=== PATIENT | female | born 1990 | race African-American/Black ===

== ENCOUNTER 2017-12-18 17:19 | Observation (INO) | payer BC ==
[~2017-12-18] VITALS: Ht 167.6 cm; Wt 68.9 kg
[2017-12-18] MEDS ORDERED: PNV1TABL76 PO (18:09)
== END 2017-12-18 20:10 | disposition home or self-care (01) ==
LOC: L&D 17:19
PROVIDERS: ADMIT Obstetrics & Gynecology; ATTEND Obstetrics & Gynecology
DX: O26.892 Other specified pregnancy related conditions, second trimester (principal); R10.9 Unspecified abdominal pain; Z3A.21 21 weeks gestation of pregnancy
CPT/HCPCS: 76805; G0378; 99281

== ENCOUNTER 2018-06-29 11:16 | Inpatient (IN) | payer BC ==
[~2018-06-29] VITALS: Ht 167.6 cm; Wt 71.2 kg
[~2018-06-29 11:16] MED LIST: PNV1TABL76 PO
[2018-06-29] MEDS ORDERED: ACETAMINOPHEN 325MG TABLET PO ONE ×2 (11:45→13:30)
[2018-06-29 12:16] LABS: COLOR URINE YELLOW (YELLOW); KETONES URINE NEGATIVE (NEGATIVE); LEUKOCYTE ESTERASE URINE TRACE (NEGATIVE); NITRITE URINE NEGATIVE (NEGATIVE); OCCULT BLOOD URINE 1+ (NEGATIVE); PROTEIN URINE NEGATIVE (NEGATIVE); SPECIFIC GRAVITY URINE 1.022 (1.005-1.030); UROBILINOGEN URINE 0.2 E.U./dL (0.2-1.0)
[2018-06-29 12:18] LABS: CLARITY URINE HAZY (CLEAR)
[2018-06-29 12:22] LABS: CHLORIDE 107 mEq/L (98-107)
[2018-06-29 12:23] LABS: HEMATOCRIT. 41.8 % (36.0-48.0); HEMOGLOBIN. 13.9 g/dL (12.0-16.0); MEAN CORPUSCULAR VOLUME 90.1 fL (81.0-99.0); MEAN PLATELET VOLUME 8.9 fl (7.4-10.4); PLATELET 309 x1000/uL (130-400); RED BLOOD CELL COUNT 4.64 mill/uL (4.2-5.4); RED CELL DISTRIBUTION WIDTH 15.3 % (11.6-14.6)
[2018-06-29 12:28] LABS: HCG SCREEN NEGATIVE
[2018-06-29 13:01] LABS: PLATELET ESTIMATE NORMAL
[2018-06-29] MEDS ORDERED: CEFTRIAXONE 2 G PREMIX 50 ML IV ONE (13:45)
[2018-06-29] MEDS ORDERED: LORAZEPAM 2MG/ML CPJ ONE (14:00)
[2018-06-29] MEDS ORDERED: LORAZEPAM 2MG/ML CPJ IV NR (14:45)
[2018-06-29] MEDS ORDERED: CLONIDINE 0.1MG TABLET PO PRN (14:45)
[2018-06-29] MEDS ORDERED: ONDANSETRON HCL 4MG/2ML INJ IV PRN (14:45)
[2018-06-29] MEDS ORDERED: LORAZEPAM 2MG/ML CPJ IV PRN (14:45)
[2018-06-29] MEDS: SODIUM CHLORIDE 0.45% 1,000 ML IV SCH (17:19)
[2018-06-29 17:21] VITALS: BP 94/58
[2018-06-29 20:00] VITALS: BP 101/45
[2018-06-29] MEDS ORDERED: LEVOFLOXACIN 500MG PREMIX 100 ML IV SCH (20:00)
[2018-06-29] MEDS: ACETAMINOPHEN 325MG TABLET PO PRN (20:38)
[2018-06-30] VITALS: BP 93/51
[2018-06-30 04:00] VITALS: BP 96/58
[2018-06-30] MEDS: SODIUM CHLORIDE 0.45% 1,000 ML IV SCH (06:01)
[2018-06-30 06:57] LABS: HEMATOCRIT. 39.5 % (36.0-48.0); HEMOGLOBIN. 13.1 g/dL (12.0-16.0); MEAN CORPUSCULAR HEMOGLOBIN 29.8 pg (28.0-32.0); MEAN CORPUSCULAR VOLUME 89.9 fL (81.0-99.0); MEAN PLATELET VOLUME 9.4 fl (7.4-10.4); PLATELET 280 x1000/uL (130-400); RED BLOOD CELL COUNT 4.39 mill/uL (4.2-5.4); RED CELL DISTRIBUTION WIDTH 15.5 % (11.6-14.6)
[2018-06-30 07:25] LABS: CHLORIDE 110 mEq/L (98-107)
[2018-06-30 07:51] VITALS: BP 98/53
[2018-06-30] MEDS: ACETAMINOPHEN 325MG TABLET PO PRN (08:03)
[2018-06-30 08:35] LABS: *BARBITURATES SCREEN URINE NEGATIVE (NEGATIVE)
[2018-06-30 08:36] LABS: *AMPHETAMINES SCREEN URINE NEGATIVE (NEGATIVE); *BENZODIAZEPINES SCREEN URINE NEGATIVE (NEGATIVE); *COCAINE SCREEN URINE NEGATIVE (NEGATIVE)
[2018-06-30 08:37] LABS: METHADONE URINE SCREEN NEGATIVE (NEGATIVE)
[2018-06-30 08:38] LABS: CANNABINOID URINE SCREEN NEGATIVE (NEGATIVE); PHENCYCLIDINE URINE SCREEN NEGATIVE (NEGATIVE)
[2018-06-30 08:43] LABS: OPIATES URINE SCREEN PRESUMTIVE POSITIVE (NEGATIVE)
[2018-06-30 10:14] VITALS: BP 100/63
[2018-06-30 16:08] LABS: PLATELET ESTIMATE NORMAL
== END 2018-06-30 10:30 | disposition home or self-care (01) | DRG 871 ==
LOC: ER 11:16 → 7WST 13:44 → ENRESERV 15:50 → 7WST 17:12
PROVIDERS: ADMIT Hospitalist; ATTEND Hospitalist
DX: A41.9 Sepsis, unspecified organism (principal); G93.40 Encephalopathy, unspecified; N39.0 Urinary tract infection, site not specified; G25.3 Myoclonus; Z98.891 History of uterine scar from previous surgery; Z79.899 Other long term (current) drug therapy
CPT/HCPCS: 36415; 70450; 71045; 80053; 80305; 81003; 81025; 82962; 83735; 84703; 85025; 87086; 93005; 96365; 99285; J0696; J1956; J2060